=== PATIENT | male | born 1990 | race Caucasian/White ===

== ENCOUNTER 2016-07-06 05:55 | Emergency (ER) | payer BC ==
[2016-07-06 06:06] VITALS: BP 146/95
[2016-07-06] MEDS ORDERED: Acetaminophen/oxyCODONE 325-5 MG Tab PO ONE (06:17)
[2016-07-06] MEDS ORDERED: Ondansetron 4 MG Tab.DIS PO ONE (06:17)
--- NOTE | 2016-07-06 06:17 | EDM.PDOC ---
ED HPI RENAL/ - General Chief Complaint: Genitourinary Problem Stated Complaint: KIDNEY STONES Time Seen by Provider: 07/06/16 06:16 Source of Information: Reports: Patient History Limitations: Reports: No limitations - History of Present Illness INITIAL COMMENTS - FREE TEXT/NARRATIVE: 26-year-old male presents the ED with acute onset of right flank and lower abdominal pain radiating to the right testicle. Patient has a history of recurrent kidney stones. He states this attack started on , July 02. Intermittent problems throat the weekend. He was seen in clinic yesterday and identified to have moderate hematuria. He was placed on Flomax or 0.4 mg once daily. He states he woke this morning with much worse pain than he had had previously. Pain radiating from right flank down to the right groin. Associated mild nausea without vomiting. No constipation no need to void or defecate. He has not had any recent investigations as to how many stones are present or how large they are. He was told was moderate blood in his urine yesterday on analysis. He essentially comes to the ED looking for pain relief. Symptom Onset Date: 07/02/16 Timing/Duration: Reports: Day(s):, Getting worse, Intermittent Location: Reports: flank Quality: Reports: ache (right flank radiating down to the right groin.), cramping, fullness, stabbing, radiating (2 right groin testicle.) Severity: severe Improves with: Denies: defecating Worsens with: Denies: defecating Context: Denies: sick contact, recent surgery, recent trauma, lifting, activity/ exercise, other Associated Symptoms: Reports: frequency Treatments [employer]ICATION: Reports: Other (see below) (Flomax 0.4 mg once daily) - Related Data Allergies/ADRs: Allergies Allergy/AdvReac Type Severity Reaction Status Date / Time No Known Allergies Allergy Verified 07/06/16 06:06 Home Meds: Home Meds Ondansetron [Zofran ODT] 4 mg PO Q6H #5 tab.dis 07/06/16 [Rx] Tamsulosin [Flomax] 0.4 mg PO DAILY 07/06/16 [History] oxyCODONE HCl/Acetaminophen [Percocet 5-325 mg Tablet] 1 - 2 each PO Q4H PRN # 20 tablet 07/06/16 [Rx] Past Medical History Genitourinary History: Reports: Renal calculus Social & Family History - Family History Family Medical History: Noncontributory - Recreational Drug Use Recreational Drug Use: No - Living Situation & Occupation Living situation: Reports: Occupation: employed ED ROS GENERAL - Review of Systems Review Of Systems: See Below Constitutional: Denies: fever, chills, malaise, weakness, fatigue, weight loss HEENT: Reports: No symptoms Respiratory: Reports: No Symptoms Cardiovascular: Reports: No symptoms Endocrine: Reports: no symptoms GI/Abdominal: Reports: Abdominal pain (right hemiabdomen down to the right groin.) : Reports: flank pain (right flank pain), frequency Musculoskeletal: Reports: no symptoms, back pain Skin: Reports: no symptoms Neurological: Reports: No Symptoms Psychiatric: Reports: No symptoms Hematologic/Lymphatic: Reports: no symptoms Immunologic: Reports: no symptoms ED EXAM, RENAL/ - Physical Exam Exam: See Below Exam Limited By: No limitations General Appearance: alert, WD/WN, moderate distress Neck: normal inspection, supple, non-tender, full range of motion. No: lymphadenopathy (L), lymphadenopathy (R) Respiratory/Chest: no respiratory distress, lungs clear, normal breath sounds, no accessory muscle use, chest non-tender Cardiovascular: normal peripheral pulses, regular rate, rhythm, no edema, no gallop, no murmur GI/Abdominal: normal bowel sounds, soft, no distention, tender (right lower quadrant mild.). No: no organomegaly, no abnormal bruit, no mass, distended, guarding, rigid, rebound (Male) Exam: No hernia Extremities: normal inspection, normal range of motion, non-tender, normal capillary refill Neurological: alert, oriented, CN II-XII intact, normal cognition Psychiatric: normal affect, normal mood Skin Exam: Warm, Dry, Intact, Normal color, No rash Course - Vital Signs Last Recorded V/S: Last Vital Signs Temp 37.0 C 07/06/16 06:01 Pulse 92 07/06/16 06:01 Resp 16 07/06/16 06:01 BP 146/95 H 07/06/16 06:01 Pulse Ox 97 07/06/16 06:01 - Orders/Labs/Meds Labs: Laboratory Tests 07/06/16 Range/Units 06:40 Urine Color Yellow (Yellow) Urine Appearance Clear (Clear) Urine pH 6.0 (5.0-8.0) Ur Specific [place] > or = 1.030 (1.005-1.030) Urine Protein 1+ H (Negative) Urine Glucose (UA) Negative (Negative) Urine Ketones Negative (Negative) Urine Occult Blood 3+ H (Negative) Urine Nitrite Negative (Negative) Urine Bilirubin Negative (Negative) Urine Urobilinogen 0.2 (0.2-1.0) Ur Leukocyte Esterase Negative (Negative) Urine RBC 30-40 H (0-5) /hpf Urine WBC 5-10 H (0-5) /hpf Ur Epithelial Cells Not Reportable Ur Squamous Epith Cells 0-5 (0-5) /hpf Urine Bacteria Rare (FEW) /hpf Urine Mucus Few (FEW) /hpf Meds: Medications Discontinued Medications Generic Name Dose Route Start Last Admin Trade Name Benitoq PRN Reason Stop Dose Admin Ondansetron HCl 4 mg 07/06/16 06:17 07/06/16 06:27 Zofran Odt PO 07/06/16 06:18 4 mg ONETIME ONE Administration Oxycodone/Acetaminophen 2 tab 07/06/16 06:17 07/06/16 06:27 Percocet 325-5 Mg PO 07/06/16 06:18 2 tab ONETIME ONE Administration - Radiology Interpretation Free Text/Narrative:: 26-year-old male presents the ED with suspect right renal colic. Was told that there was blood in his urine on yesterday's analysis. He's been having intermittent flank and right lower quadrant abdominal pain for the last 4 days. Pain awoke him from sleep early this morning and was much more severe than what his experience in the past. Has a history of recurrent renolithiasis problems and often passes small stones. I checked in the last thing he had done was [address] Cutler urologist. This was in 2014.plan he does not want an injection at this time. Given 2 Percocet 5 325 mg tablets by mouth with Zofran [address] abdomen pelvis will be done per renal protocol. - Re-Assessments/Exams Free Text/Narrative Re-Assessment/Exam: 07/06/16 06:56 CT scan of the abdomen and pelvis has been performed.he reveals no gallstones the liver appears normal as does the pancreas and spleen. The left kidney drainage system are normal. There are no stones within the right left renal parenchyma. The right side shows dilated dictation of the right renal pelvis. The ureter is dilated to approximately mid ureter where there is a 5.6 mm elongated stone that is approximately 2.5 mm in width.is almost at the junction of the mid and lower third of the ureter. Patient will be given a set of to try and see if he can pass the stone in the next couple weeks. Failing this it may travel low enough to be able to be snared. I will send him home with 20 tablets of Percocet 5 325 mg strength to be used when necessary for recurrence of renal colic pain. He is already on Flomax 0.4 mg once daily. Departure - Departure Time of Disposition: 07:26 Disposition: Home, Self-Care 01 Condition: fair Clinical Impression: Renal colic on right side Prescriptions: Ondansetron [Zofran ODT] 4 mg PO Q6H #5 tab.dis oxyCODONE HCl/Acetaminophen [Percocet 5-325 mg Tablet] 1 - 2 each PO Q4H PRN # 20 tablet PRN Reason: pain relief. Referrals: Theo Gomez MD [Primary Care Provider] - Forms: ED Department Discharge, Return to Work/School Form Additional Instructions: evaluation in the emergency room this morning in regards to recurrence of right flank and lower abdominal pain radiate down to the right groin characteristic of renal colic. By history you've had kidney stones many times in the past. CT scan of the abdomen done this morning reveals a 5.6 x 2.5 mm elongated stone in the lower right ureter. It has partially 4-5 inches to travel down the ureter to get into the urinary bladder at which time he would have no further pain. It is straining urine until the stone was identified to pass. If the stone does not pass the next 2-3 weeks and follow up with the urologist is advised. I did write a prescription for pain medication Percocet 5 /325 to be taken one or 2 every 4-6 hours needed for pain relief. Zofran 4 mg under the tongue used every 6 hours needed for relief of nausea or vomiting. Her pain is not controlled or vomiting occurs return to the ED.
--- NOTE | 2016-07-06 07:08 | CT ---
CT abdomen and pelvis Technique: Multiple axial sections were obtained from above the dome of the diaphragm inferiorly through the pubic symphysis. Intravenous and oral contrast was not utilized. Study has been performed as a ureteral stone protocol. Findings: Right ureter and right renal pelvis are mildly dilated. This finding is due to a distal ureteral stone measuring approximately 7 mm. This stone occurs approximately 9-10 cm proximal to the UVJ. No additional ureteral stones are seen. No abnormal calcifications are identified within the kidneys. No abnormal calcifications are seen within the bladder. Visualized lung bases are clear. Liver shows diffuse fatty infiltration. Spleen size is normal. Adrenal glands show no nodule. Pancreas is within normal limits. Gallbladder shows no calcified gallstones. Aorta shows no aneurysmal dilatation. No retroperitoneal adenopathy or mesenteric abnormalities are noted. No pelvic mass or adenopathy is seen. Appendix is seen which appears normal. No bowel dilatation is seen. No inflammatory change or free fluid is seen. Bone window settings were reviewed which appear within normal limits for the patient's age. Impression: 1. Right-sided hydronephrosis secondary to a distal right ureteral stone measuring approximately 7 mm. Stone located approximately 9-10 cm proximal to the UVJ. 2. Fatty infiltration within the liver. 3. No additional abnormality is noted on noncontrast CT study of the abdomen and pelvis. Diagnostic code #3
== END 2016-07-06 07:37 | disposition home or self-care (01) ==
LOC: JD.ED 05:55
DX: N23 Unspecified renal colic (principal); N20.1 Calculus of ureter; Z79.899 Other long term (current) drug therapy
CPT/HCPCS: 74176; 81001; 99284; A9270; 99283

== ENCOUNTER 2017-06-09 10:05 | Emergency (ER) | payer BC ==
[2017-06-09 11:26] VITALS: BP 132/83
--- NOTE | 2017-06-09 11:45 | EDM.PDOC ---
ED HPI GENERAL MEDICAL PROBLEM - General Chief Complaint: Skin Complaint Stated Complaint: RASH ALL OVER BODY Time Seen by Provider: 06/09/17 11:39 Source of Information: Reports: Patient History Limitations: Reports: No Limitations - History of Present Illness INITIAL COMMENTS - FREE TEXT/NARRATIVE: 27-year-old male presents for evaluation and treatment of a skin rash. Reportedly the skin rash started on his hands about one year ago. Was almost exclusively located to his hands. He saw dermatology in [place] and had a biopsy done inconclusive; working diagnosis with psoriasis versus eczema. Since April of this year his rash has significantly worsened. Is now involving the bilateral hands and spreading up his arms he has some on his chest and also some on his left thigh. Saw dermatology in [place] on Wednesday. She was not prescribed any additional medications. He has not been on any oral medications. Currently has follow-up with dermatology in August. Patient is complaining of joint pains in his hands and a severe painful rash. States the rash is weeping. No chest pain, shortness of breath, throat pain or swelling. Patient was tested for tuberculosis and HIV. These were all negative. He has also had x-rays of his hands done which did not demonstrate any abnormalities. Generalized Pain Score (Numeric/FACES): 5 - Related Data Allergies Allergy/AdvReac Type Severity Reaction Status Date / Time lactose Allergy Nausea and Verified 06/09/17 10:30 Vomiting Home Meds: Home Meds Clobetasol [Clobetasol Propionate 0.05%] 1 applic TOP BID 06/09/17 [History] Doxycycline [Vibramycin] 100 mg PO BID #28 cap 06/09/17 [Rx] Prednisone [IJD: predniSONE] 20 mg PO DAILY #63 tab 06/09/17 [Rx] Past Medical History Genitourinary History: Reports: Renal Calculus Social & Family History - Family History Family Medical History: Noncontributory - Recreational Drug Use Recreational Drug Use: No - Living Situation & Occupation Living situation: Reports: Occupation: Employed ED ROS GENERAL - Review of Systems Review Of Systems: See Below HEENT: Denies: Throat Pain, Throat Swelling Respiratory: Denies: Shortness of Breath Cardiovascular: Denies: Chest Pain Musculoskeletal: Reports: Joint Pain (bilteral hands) Skin: Reports: Rash (bilateral arms, hands, right side of chest and left proximal thigh), Other (states the rash is weeping) ED EXAM, SKIN/RASH Exam: See Below Exam Limited By: No Limitations General Appearance: Alert, WD/WN, No Apparent Distress Ears: Normal External Exam Nose: Normal Inspection Throat/Mouth: Normal Inspection, Normal Voice, No Airway Compromise Respiratory/Chest: No Respiratory Distress, Lungs Clear, Normal Breath Sounds Cardiovascular: Normal Peripheral Pulses, Regular Rate, Rhythm, No Murmur Neurological: Alert, Oriented, Normal Cognition Skin: Rash (erythematous blanching rash to the bilteral arms, right chest, right abdomen and left proximal thigh; scaling, rough rash with a honey colors crust; hands are the worse for tenderness and thickness; also has cystic acne to the chest and abdomen) Location, Skin: Chest, Abdomen, Upper Extremity, Right, Upper Extremity, Left, Lower Extremity, Left Characteristics: Erythematous Associated features: Tenderness, Scaling, Crusting, Weeping, Rough Course - Vital Signs Last Recorded V/S: Last Vital Signs Temp 37.0 C 06/09/17 10:33 Pulse 77 06/09/17 10:33 Resp 20 06/09/17 10:33 BP 132/83 06/09/17 10:33 Pulse Ox 100 06/09/17 10:33 - Re-Assessments/Exams Free Text/Narrative Re-Assessment/Exam: 06/09/17 12:[address] Lowery. Agrees with treatment plan and workign dx of eczema , impetigo and cystic acne. Will start on prednisone and doxycycline. Follow-up with family med or dermatology pending wait. No lotions, detergents, etc with dyes or perfumes. Departure - Departure Time of Disposition: 12:12 Disposition: Home, Self-Care 01 Condition: Fair Clinical Impression: Eczema, Impetigo, Cystic acne - Discharge Information Prescriptions: Doxycycline [Vibramycin] 100 mg PO BID #28 cap Prednisone [IJD: predniSONE] 20 mg PO DAILY #63 tab Instructions: Eczema, Impetigo, Adult Referrals: Theo Gomez MD [Primary Care Provider] - Forms: ED Department Discharge, ED Return to Work/School Form Additional Instructions: Take the doxycycline as prescribed. 1 tab twice a day for 14 days. Take this medication with food. This is an antibiotic. Doxycycline can cause photosensitivity, avoid sunlight while you are on this antibiotic. Prednisone as prescribed. 1 tab 3 times a day for 7 days then 1 tab twice a day for 14 days then 1 tablet once a day for 14 days. you will likely need to be tapered off this medication further. Follow-up with either dermatology or your primary care provider for further taper as they may also want to extend your course. Avoid any lotions, soaps or detergents that have any dyes or perfumes. Recommend purchasing a laundry detergent that is free of any dyes or perfumes. When in the shower recommend avoiding any soaps that have any dyes or perfumes. Recommend an antihistamine such as Benadryl, Claritin or Carlita as needed for the itchiness. Follow up with your primary care provider or dermatology for recheck of your symptoms within 2 weeks. Please return to ER if your symptoms change or worsen.
== END 2017-06-09 12:49 | disposition home or self-care (01) ==
LOC: JD.ED 10:05
DX: L30.9 Dermatitis, unspecified (principal); L01.00 Impetigo, unspecified; L70.0 Acne vulgaris; Z79.899 Other long term (current) drug therapy; Z91.011 Allergy to milk products
CPT/HCPCS: 99282; 99283

== ENCOUNTER 2018-07-30 14:09 | Emergency (ER) | payer BC ==
[2018-07-30 14:20] VITALS: BP 138/82
--- NOTE | 2018-07-30 14:42 | EDM.PDOC ---
ED HPI GENERAL MEDICAL PROBLEM - General Chief Complaint: Laceration Stated Complaint: FACIAL LAC Time Seen by Provider: 07/30/18 14:22 Source of Information: Reports: Patient History Limitations: Reports: No Limitations - History of Present Illness INITIAL COMMENTS - FREE TEXT/NARRATIVE: The patient was changing wheel bearing and he slipped with a wrench and hit himself between the eyes. He has a 3cm laceration between his eyes. He had no LOC. He had no headache. His tetanus is not up to date. He has no numbness or weakness. He has no vision changes. Onset: Sudden Duration: Minutes: Location: Reports: Face Quality: Reports: Sharp Severity: Mild Improves with: Reports: None Worsens with: Reports: None Context: Reports: Trauma (Wrench slipped) Associated Symptoms: Reports: No Other Symptoms Nose Pain Score (Numeric/FACES): 2 - Related Data Allergies Allergy/AdvReac Type Severity Reaction Status Date / Time lactose Allergy Nausea and Verified 06/09/17 10:30 Vomiting Home Meds: Home Meds . [No Known Home Meds] 07/30/18 [History] Past Medical History Genitourinary History: Reports: Renal Calculus - Past Surgical History Musculoskeletal Surgical History: Reports: Carpal Tunnel Social & Family History - Family History Family Medical History: Noncontributory - Tobacco Use Smoking Status *Q: Current Every Day Smoker Years of Tobacco use: 15 Packs/Tins Daily: 1 - Caffeine Use Caffeine Use: Reports: Soda - Recreational Drug Use Recreational Drug Use: No - Living Situation & Occupation Living situation: Reports: Occupation: Employed ED ROS GENERAL - Review of Systems Review Of Systems: See Below Constitutional: Reports: No Symptoms HEENT: Reports: Other (laceration between his eyes) Respiratory: Reports: No Symptoms Cardiovascular: Reports: No Symptoms Endocrine: Reports: No Symptoms GI/Abdominal: Reports: No Symptoms : Reports: No Symptoms ED EXAM, SKIN/RASH Exam: See Below Exam Limited By: No Limitations General Appearance: Alert, No Apparent Distress Ears: Normal External Exam Nose: Normal Inspection Head: Other (3cm curved laceration between the eyes) Neck: Normal Inspection Respiratory/Chest: No Respiratory Distress ED SKIN PROCEDURES - Laceration/Wound Repair Face Lac/Wound length In cm: 3 Appearance: Subcutaneous, Irregular (curved) Distal NVT: Neuro & Vascular Intact Anesthetic Type: Local Local Anesthesia - Lidocaine (Xylocaine): 1% with EPI Local Anesthetic Volume: 3cc Skin Prep: Saline Exploration/Debridement/Repair: Wound Explored, In a Bloodless Field, Explored to Base Closed with: Sutures Suture Size: 4-0 # of Sutures: 5 Suture Type: Nylon, Interrupted, Simple Tetanus Status Addressed: Yes Complications: No Course - Vital Signs Last Recorded V/S: Last Vital Signs Temp 97.3 F 07/30/18 14:19 Pulse 82 07/30/18 14:19 Resp 20 07/30/18 14:19 BP 138/82 07/30/18 14:19 Pulse Ox 98 07/30/18 14:19 - Orders/Labs/Meds Meds: Medications Discontinued Medications Generic Name Dose Route Start Last Admin Trade Name Dre PRN Reason Stop Dose Admin Lidocaine/Epinephrine 20 ml 07/30/18 14:37 07/30/18 14:47 Xylocaine 1% With Epinephrine 1:100,000 INJECT 07/30/18 14:38 20 ml ONETIME ONE Administration - Re-Assessments/Exams Free Text/Narrative Re-Assessment/Exam: 07/30/18 14:42 I sutured the wound closed. 07/30/18 15:11 The patient was unsure of his last tetanus. He did not want that updated today. Departure - Departure Time of Disposition: 15:10 Disposition: Home, Self-Care 01 Condition: Good Clinical Impression: Laceration of forehead Qualifiers: Encounter type: initial encounter Qualified Code(s): S01.81XA - Laceration without foreign body of other part of head, initial encounter - Discharge Information *PRESCRIPTION DRUG MONITORING PROGRAM REVIEWED*: Not Applicable *COPY OF PRESCRIPTION DRUG MONITORING REPORT IN PATIENT JUAN M: Not Applicable Referrals: Theo Gomez MD [Primary Care Provider] - 1 Week Forms: ED Department Discharge Additional Instructions: Clean the wound with warm soapy water 2 times per day. Have the sutures removed in a week. Look for any signs of infection such as redness, swelling, pain, or drainage. If you see any of these signs, please return or see your doctor. You may have to go on oral antibiotics. Have your tetanus updated.
[2018-07-30] MEDS: Lidocaine 1% with EPINEPHrine 1:100,000 20 ML MDV INJECT ONE (14:47)
== END 2018-07-30 15:23 | disposition home or self-care (01) ==
LOC: JD.ED 14:09
DX: S01.81XA Laceration without foreign body of other part of head, initial encounter (principal); F17.210 Nicotine dependence, cigarettes, uncomplicated; W22.8XXA Striking against or struck by other objects, initial encounter; Z91.011 Allergy to milk products
CPT/HCPCS: 12013; 99282

== ENCOUNTER 2019-04-10 21:19 | Emergency (ER) | payer BC ==
--- NOTE | 2019-04-10 22:51 | EDM.PDOC ---
ED HPI GENERAL MEDICAL PROBLEM - General Chief Complaint: Skin Complaint Stated Complaint: EAR PAIN Time Seen by Provider: 04/10/19 22:29 Source of Information: Reports: Patient, Family () History Limitations: Reports: No Limitations - History of Present Illness INITIAL COMMENTS - FREE TEXT/NARRATIVE: Mr. Souza is a pleasant 28-year-old man with a past medical history significant for ureterolithiasis, who now presents to the ED stating that he noticed some bumps behind his left ear today. They are tender to palpation, but it is unclear if they are painful if he is not touching them. No recent fever. Prior similar symptoms. The patient states that he has had slight nasal congestion over the past 2 or 3 days, although no sneezing. Otherwise, no recent chills, cough, dyspnea, chest pain, palpitations, nausea, vomiting, constipation, diarrhea, abdominal pain, urinary symptoms, recent weight gain or weight loss, recent bloody bowel movements or black bowel movements, recent joint aches, headaches, or rashes. The patient has not attempted any [id number]-[id number] or home treatment prior to coming to the ED. Here in the ED, the patient is found to be hemodynamically stable, afebrile, saturating 100% on room air. The patient's PCP is Dr. Theo Gomez. He has not received an influenza vaccine this season, and declined an offer to receive one here today. Left Ear Pain Score (Numeric/FACES): 4 - Related Data Allergies Allergy/AdvReac Type Severity Reaction Status Date / Time lactose Allergy Nausea and Verified 04/10/19 21:35 Vomiting Home Meds: Home Meds . [No Known Home Meds] 07/30/18 [History] Past Medical History Genitourinary History: Reports: Renal Calculus - Past Surgical History Male Surgical History: Reports: Vasectomy Musculoskeletal Surgical History: Reports: Carpal Tunnel (right only) Social & Family History - Family History Family Medical History: Noncontributory - Tobacco Use Smoking Status *Q: Former Smoker Years of Tobacco use: 7 Packs/Tins Daily: 1 Month/Year Tobacco Last Used: Quit 2012 - Caffeine Use Caffeine Use: Reports: Soda - Alcohol Use Alcohol Use History: Yes Alcohol Use Frequency: Socially - Recreational Drug Use Recreational Drug Use: Yes Drug Use in Last 12 Months: No Recreational Drug Type: Reports: Marijuana/Hashish (last smoked 2006) - Living Situation & Occupation Living situation: Reports: , with Spouse, with Family (6 kids) Occupation: Employed (Work[employer]over [employer]) ED ROS GENERAL - Review of Systems Review Of Systems: Comprehensive ROS is negative, except as noted in HPI. ED EXAM, GENERAL - Physical Exam Exam: See Below Exam Limited By: No Limitations General Appearance: Alert, WD/WN, No Apparent Distress Eye Exam: Bilateral Eye: EOMI, Normal Inspection Ears: Normal External Exam, Normal Canal, Hearing Grossly Normal, Normal TMs Nose: Normal Inspection Throat/Mouth: Normal Inspection, Normal Lips, Normal Teeth, Normal Gums, Normal Oropharynx, Normal Voice, No Airway Compromise Head: Atraumatic, Other (A cluster of (likely) acne noted just superior to the patient's left mastoid process. Very small lymph nodes noted in the left postauricular location.) Neck: Supple, Full Range of Motion, Lymphadenopathy (L) (Very small lymphadenopathy to the superior aspect of the left anterior cervical chain. The patient reports some tenderness to all palpable lymph nodes, although no fluctuance is noted.). No: Lymphadenopathy (R) Respiratory/Chest: No Respiratory Distress, Lungs Clear, Normal Breath Sounds, No Accessory Muscle Use Cardiovascular: Normal Peripheral Pulses, Regular Rate, Rhythm, No Edema, No Gallop, No JVD, No Murmur, No Rub Peripheral Pulses: 4+: Radial (L), Radial (R) GI/Abdominal: Normal Bowel Sounds, Soft, Non-Tender, No Organomegaly, No Distention, No Abnormal Bruit, No Mass (Male) Exam: Deferred Rectal (Males) Exam: Deferred Back Exam: Normal Inspection, Full Range of Motion, NT Extremities: Normal Inspection, Normal Range of Motion, No Pedal Edema, Normal Capillary Refill Neurological: Alert, Oriented, Normal Cognition, No Motor/Sensory Deficits Psychiatric: Normal Affect Skin Exam: Warm, Dry, Intact, Normal Color, No Rash Course - Vital Signs Last Recorded V/S: Last Vital Signs Temp 37.1 C 04/10/19 21:33 Pulse 85 04/10/19 21:33 Resp 20 04/10/19 21:33 BP 131/85 04/10/19 21:33 Pulse Ox 100 04/10/19 21:33 - Re-Assessments/Exams Free Text/Narrative Re-Assessment/Exam: 04/10/19 22:46 I see no abnormality to the patient's left external auditory canal or TM. Behind his left ear, just superior to his mastoid process, the patient appears to have some clustered acne that does not appear to be related to lymphadenopathy. In the position of the left postauricular lymph nodes, and along the superior aspect of his left anterior cervical chain, however, the patient has very mild lymphadenopathy. As the patient reports that he has had slight nasal congestion for the past 2-3 days, I suspect that he has a viral URI. I explained that there are no medicines to get rid of a viral URI, that it will have to run its course, but I reassured him that no specific treatment is necessary for his lymphadenopathy, either, that it will simply go away on its own. He will likely find it [id number] ibuprofen will work better than Tylenol for any discomfort that he might be experiencing. I explained that I do not see an indication for a biopsy or any blood work. The patient appeared to be satisfied with this expiration, however, his did not. Departure - Departure Time of Disposition: 22:48 Disposition: Home, Self-Care 01 Condition: Good Clinical Impression: Viral URI, Anterior cervical lymphadenopathy - Discharge Information *PRESCRIPTION DRUG MONITORING PROGRAM REVIEWED*: Not Applicable *COPY OF PRESCRIPTION DRUG MONITORING REPORT IN PATIENT JUAN M: Not Applicable Instructions: Lymphadenopathy, Upper Respiratory Infection, Adult, [id number] Referrals: Theo Gomez MD [Primary Care Provider] - Forms: ED Department Discharge Additional Instructions: You were seen in the emergency room after noticing some tender bumps behind your left ear. Based on your history and physical examination, the bumps your feeling are slightly enlarged postauricular lymph nodes and along the upper portion of your left anterior cervical chain. These enlarged lymph nodes are most likely due to a viral upper respiratory infection. As discussed, there is no treatment for a viral URI, nor is there any treatment for the enlarged lymph nodes - they are supposed to be there, and are doing their job. You may take [id number] ibuprofen as needed for discomfort. If any other problems, please do not hesitate to return to the ER. Sepsis Event Note - Evaluation Sepsis Screening Result: No Definite Risk - Focused Exam Date Exam was Performed: 04/14/19 Time Exam was Performed: 18:57
== END 2019-04-10 22:58 | disposition home or self-care (01) ==
LOC: JD.ED 21:19
CPT/HCPCS: 99282

== ENCOUNTER 2021-08-28 00:38 | Emergency (ER) | payer BC ==
[2021-08-28 00:53] VITALS: BP 142/99; PULSE 71
[2021-08-28] MEDS ORDERED: Fluorescein 1 MG Ophth Strip EYELF ONE (02:35)
[2021-08-28] MEDS ORDERED: Proparacaine 0.5% Ophth Soln 15 ML Bottle EYELF SCH (02:45)
[2021-08-28] MEDS ORDERED: Acetaminophen/oxyCODONE 325-5 MG Tab PO ONE (03:11)
[2021-08-28] MEDS ORDERED: Erythromycin Base 0.5% Ophth Oint 1 GM Tube EYELF ONE (03:11)
== END 2021-08-28 03:30 | disposition home or self-care (01) ==
LOC: JD.ED 00:38
DX: T15.02XA Foreign body in cornea, left eye, initial encounter (principal); Z91.011 Allergy to milk products; Z86.16 Personal history of COVID-19
CPT/HCPCS: 65220; 99283; A9270; 99282

== ENCOUNTER 2022-09-21 07:00 | Day surgery (SDC) | payer BC ==
[~2022-09-21 07:00] MED LIST: Acetaminophen 325 MG Tab PO SCH; Lactated Ringers 1,000 ML IV SCH; Pantoprazole 40 MG Tab.CR PO SCH; Sodium Chloride 0.9% 10 ML Syringe FLUSH PRN; Sodium Chloride 0.9% 10 ML Syringe FLUSH SCH
[2022-09-21] MEDS ORDERED: Propofol 200 MG/20 ML SDV ONE (07:17)
[2022-09-21] MEDS ORDERED: Rocuronium 50 MG/5 ML Vial ONE (07:17)
[2022-09-21] MEDS ORDERED: Lidocaine 1% 5 ML VIAL ONE (07:17)
[2022-09-21] MEDS ORDERED: fentaNYL 100 MCG/2 ML SDV ONE (07:17)
[2022-09-21] MEDS ORDERED: Ondansetron 4 MG/2 ML SDV ONE (07:17)
[2022-09-21] MEDS ORDERED: Bupivacaine 0.5%/EPINEPHrine 1:200,000 50 ML MDV ONE (07:19)
[2022-09-21] MEDS ORDERED: fentaNYL 100 MCG/2 ML SDV IVPUSH PRN (07:40)
[2022-09-21] MEDS ORDERED: HYDROmorphone 0.5 MG/0.5 ML Syringe IVPUSH SCH (07:40)
[2022-09-21] MEDS ORDERED: Succinylcholine 200 MG/10 ML MDV ONE (08:14)
[2022-09-21] MEDS ORDERED: ceFAZolin 2 GM Vial ONE (08:19)
[2022-09-21] MEDS ORDERED: Ketorolac 30 MG/ML SDV ONE (08:35)
[2022-09-21] MEDS ORDERED: Acetaminophen/oxyCODONE 325-5 MG Tab PO SCH (09:22)
[2022-09-21 10:44] VITALS: BP 136/78; PULSE 82
== END 2022-09-21 10:15 | disposition home or self-care (01) ==
LOC: JD.SDS 07:00
PROVIDERS: ATTEND Surgery
DX: K42.9 Umbilical hernia without obstruction or gangrene (principal); G47.33 Obstructive sleep apnea (adult) (pediatric); Z88.8 Allergy status to other drugs, medicaments and biological substances; Z87.891 Personal history of nicotine dependence
CPT/HCPCS: 49591; A9270; J0330; J0690; J1885; J2405; J2704; J3010; J3490; J7120

== ENCOUNTER 2023-01-31 15:22 | Emergency (ER) | payer BC ==
[2023-01-31] MEDS ORDERED: Morphine 4 MG/ML Syringe IVPUSH ONE (15:36)
[2023-01-31] MEDS ORDERED: Sodium Chloride 0.9% 10 ML Syringe FLUSH PRN (15:36)
[2023-01-31 15:46] LABS: BASOPHILS ABSOLUTE AUTO 0.1 K/mm3 (0.0-0.2); BASOPHILS PERCENT AUTO 0.6 % (0.0-1.0); EOSINOPHILS ABSOLUTE AUTO 0.2 K/mm3 (0.0-0.4); EOSINOPHILS PERCENT AUTO 1.5 % (0.0-6.0); HEMATOCRIT 44.2 % (42.0-52.0); HEMOGLOBIN 15.6 gm/dl (14.0-18.0); IMMATURE GRAN ABSOLUTE AUTO 0.17 K/mm3 (0.00-0.05); IMMATURE GRAN PERCENT AUTO 1.6 % (0.0-0.4); LYMPHOCYTES ABSOLUTE AUTO 4.5 K/mm3 (1.0-4.8); LYMPHOCYTES PERCENT AUTO 42.5 % (24.0-44.0); MEAN CORPUSCULAR HEMOGLOBIN 31.6 pg (28.0-32.0); MEAN CORPUSCULAR HGB CONC 35.3 g/dl (32.0-36.0); MEAN CORPUSCULAR VOLUME 89.5 fl (83.0-99.0); MEAN PLATELET VOLUME 8.7 fl (9.4-12.4); MONOCYTES ABSOLUTE AUTO 0.8 K/mm3 (0.0-0.8); MONOCYTES PERCENT AUTO 7.7 % (0.0-8.0); NEUTROPHILS ABSOLUTE AUTO 4.8 K/mm3 (1.8-7.7); NEUTROPHILS PERCENT AUTO 46.1 % (41.0-71.0); PLATELET COUNT,PLT 488 K/mm3 (150-400); RED BLOOD CELL COUNT 4.94 M/mm3 (4.52-5.90); WHITE BLOOD CELL COUNT,WBC 10.46 K/mm3 (3.9-11.3)
[2023-01-31 16:11] LABS: A/G RATIO 1.1 (1-2); ALANINE AMINOTRANSFERASE,ALT 59 U/L (16-63); ALKALINE PHOSPHATASE 100 U/L (46-116); ANION GAP 15.4 (5-15); ASPARTATE AMNIOTRANSFERASE,AST 25 U/L (15-37); BILIRUBIN TOTAL 0.2 mg/dL (0.2-1.0); BLOOD UREA NITROGEN,BUN 19 mg/dL (7-18); BUN/CREATININE RATIO 15.8 (14-18); CALCIUM 9.7 mg/dL (8.5-10.1); CARBON DIOXIDE,CO2 24 mEq/L (21-32); CHLORIDE,CL 105 mEq/L (98-107); CREATININE 1.2 mg/dL (0.7-1.3); EST CRCL DRUG DOSING (CG) 90.41 mL/min; ESTIMATED GFR 82 mL/min (>60); GLUCOSE RANDOM 154 mg/dL (70-99); POTASSIUM,K 3.4 mEq/L (3.5-5.1); PROTEIN TOTAL,TP 7.6 g/dl (6.4-8.2); SODIUM,NA 141 mEq/L (136-145)
[2023-01-31 16:14] LABS: TROPONIN I HIGH SENSITIVITY < 4 pg/mL (<=76)
[2023-01-31 17:10] LABS: APPEARANCE,URINE CLEAR (Clear); BILIRUBIN,URINE NEGATIVE (Negative); COLOR,URINE YELLOW (Yellow); GLUCOSE,URINE NEGATIVE (Negative); KETONES,URINE NEGATIVE (Negative); LEUKOCYTE ESTERASE,URINE NEGATIVE (Negative); NITRITE,URINE NEGATIVE (Negative); OCCULT BLOOD,URINE TRACE-INTACT (Negative); PROTEIN,URINE NEGATIVE (Negative); UROBILINOGEN,URINE 0.2 (0.2-1.0)
[2023-01-31 17:42] LABS: BARBITURATE SCREEN,URINE NEGATIVE (CUTOFF=200); BENZODIAZEPINES SCREEN,URINE NEGATIVE (CUTOFF=150); BUPRENORPHINE SCREEN,URINE NEGATIVE (CUTOFF=10); METHADONE SCREEN, URINE NEGATIVE (CUT0FF=200); METHAMPHETAMINES SCREEN, URINE NEGATIVE (CUTOFF=500); OXYCODONE SCREEN,URINE NEGATIVE (CUT0FF=100); THC SCREEN,URINE 20 NG/ML NEGATIVE (CUTOFF=50)
[2023-01-31 17:46] LABS: AMPHETAMINES SCREEN, URINE NEGATIVE (CUTOFF=500)
[2023-01-31 18:13] LABS: SQUAMOUS EPITHELIAL CELLS,UR NOT SEEN /hpf (0-5); WBC,URINE NOT SEEN /hpf (0-5)
[2023-01-31 18:14] LABS: BACTERIA,URINE FEW /hpf (FEW); MUCUS,URINE FEW /hpf (FEW)
[2023-01-31 18:37] VITALS: BP 143/81; PULSE 80
== END 2023-01-31 18:00 | disposition home or self-care (01) ==
LOC: JD.ED 15:22
DX: S17.9XXA Crushing injury of neck, part unspecified, initial encounter (principal); S20.212A Contusion of left front wall of thorax, initial encounter; M25.512 Pain in left shoulder; Z79.899 Other long term (current) drug therapy; Z91.011 Allergy to milk products; Z86.16 Personal history of COVID-19; W23.0XXA Caught, crushed, jammed, or pinched between moving objects, initial encounter; Y99.0 Civilian activity done for income or pay
CPT/HCPCS: 36415; 70450; 70450-26; 71045; 71045-26; 72125; 72125-26; 72128; 72128-26; 73030-26-LT; 73030-LT; 80053; 80306; 80307; 81001; 84484; 85025; 93005; 93010; 99284; 99285

== ENCOUNTER 2023-04-04 00:17 | Emergency (ER) | payer BC ==
[2023-04-04 01:03] VITALS: BP 163/84; PULSE 90
[2023-04-04] MEDS: Codeine/Promethazine 10-6.25 MG/5 ML Syrup 5 ML UD Cup PO ONE (01:12)
[2023-04-04] MEDS: Azithromycin 250 MG Tab PO ONE (01:12)
[2023-04-04 01:19] LABS: CORONAVIRUS COVID-19 NAA NEGATIVE (NEGATIVE); INFLUENZA A NAA NEGATIVE (NEGATIVE); RESPIRATORY SYNCYTIAL VIR NAA NEGATIVE (NEGATIVE)
== END 2023-04-04 01:14 | disposition home or self-care (01) ==
LOC: JD.ED 00:17
DX: J20.9 Acute bronchitis, unspecified (principal); Z87.891 Personal history of nicotine dependence; Z86.16 Personal history of COVID-19; Z79.899 Other long term (current) drug therapy; Z91.048 Other nonmedicinal substance allergy status
CPT/HCPCS: 0241U; 71045; 99285; A9270; 99283

== ENCOUNTER 2023-10-05 21:50 | Emergency (ER) | payer BC ==
[2023-10-05 22:02] VITALS: BP 140/81; PULSE 79
[2023-10-05] MEDS: Ibuprofen 600 MG Tab PO ONE (23:38)
[2023-10-05] MEDS: Acetaminophen/oxyCODONE 325-5 MG Tab PO ONE (23:38)
[2023-10-06] MEDS: Levofloxacin 750 MG Tab PO SCH (00:38)
== END 2023-10-06 00:44 ==
LOC: JD.ED 21:50
DX: N45.3 Epididymo-orchitis (principal); N42.82 Prostatosis syndrome; E66.9 Obesity, unspecified; Z68.32 Body mass index [BMI] 32.0-32.9, adult; Z86.16 Personal history of COVID-19; Z87.891 Personal history of nicotine dependence; Z79.899 Other long term (current) drug therapy; Z91.011 Allergy to milk products
CPT/HCPCS: 74176; 99284; A9270; 99283